=== PATIENT | female | born 1950 | race American Indian/Alaskan Native ===

== ENCOUNTER 2022-02-02 18:27 | Inpatient (IN) | payer MEDICARE ==
--- NOTE | 2022-02-02 18:39 | Emergency Department Report ---
ED Palpitations HPI - General Stated Complaint: AFIB Time Seen by Provider: 02/02/22 18:30 Source: patient, EMS - History of Present Illness Initial Comments: Patient is 71 years old female with no significant past medical history except for back surgery. Patient brought to the emergency room via EMS from home for evaluation of sudden onset of irregular and fast heartbeat. Patient stated that she never had any symptoms like this before. Patient stated that symptoms started during rest and associated with shortness of breath. EMS found patient to be in atrial fibrillation with RVR and heart rate of 170. Patient is comp laining of mild diffuse chest pain and shortness of breath. She denied any fever or chills or cough recently. MD Complaint: rapid heart beat, irregular heart beat, atrial fibrillation -: Sudden Context: occured during rest Associated Symptoms: chest pain, shortness of breath - Related Data Allergies Allergy/AdvReac Type Severity Reaction Status Date / Time No Known Allergies Allergy Verified 02/02/22 18:55 ED Review of Systems ROS: Stated complaint: AFIB Other details as noted in HPI Comment: All other systems reviewed and negative Constitutional: denies: chills, fever Respiratory: shortness of breath. denies: cough Cardiovascular: chest pain, palpitations, dyspnea on exertion Gastrointestinal: denies: abdominal pain, nausea, vomiting, diarrhea, constipation, hematemesis, hematochezia Musculoskeletal: denies: back pain Neurological: denies: headache, weakness, numbness, paresthesias, confusion ED Physical Exam - General General appearance: alert, in no apparent distress - Head Head exam: Present: atraumatic, normocephalic, normal inspection - Eye Eye exam: Present: normal appearance - ENT ENT exam: Present: normal exam, normal orophraynx, mucous membranes moist - Neck Neck exam: Present: normal inspection, full ROM. Absent: tenderness, meningismus - Respiratory Respiratory exam: Present: normal lung sounds bilaterally - Cardiovascular Cardiovascular Exam: Present: tachycardia, irregular rhythm. Absent: systolic murmur, diastolic murmur, rubs - GI/Abdominal GI/Abdominal exam: Present: soft, normal bowel sounds. Absent: distended, tenderness, guarding, rebound, rigid, organomegaly, mass, bruit, pulsatile mass, hernia - Extremities Exam Extremities exam: Present: normal inspection, full ROM, normal capillary refill. Absent: tenderness, pedal edema, joint swelling, calf tenderness - Back Exam Back exam: Present: normal inspection, full ROM. Absent: CVA tenderness (R), CVA tenderness (L) - Neurological Exam Neurological exam: Present: alert, oriented X3, CN II-XII intact, normal gait, reflexes normal. Absent: motor sensory deficit - Psychiatric Psychiatric exam: Present: normal mood - Skin Skin exam: Present: warm, intact, normal color ED Course Vital Signs 02/02/22 02/02/22 02/02/22 18:40 18:46 18:47 Temperature 97.9 F Pulse Rate 123 H 117 H Respiratory 17 14 Rate Blood Pressure [Right] O2 Sat by Pulse 99 99 Oximetry 02/02/22 18:52 Temperature Pulse Rate 134 H Respiratory 20 Rate Blood Pressure 133/102 [Right] O2 Sat by Pulse Oximetry ED Medical Decision Making - Lab Data Result diagrams: 02/02/22 18:45 02/02/22 18:45 - EKG Data -: EKG Interpreted by De Rate: tachycardia - EKG Data 02/02/22 19:44 Atrial fibrillation with RVR and a heart rate of 124. - Radiology Data Radiology results: report reviewed - Medical Decision Making Patient is 71 years old female with no significant past medical history except for back surgery. Patient brought to the emergency room via EMS from home for evaluation of sudden onset of irregular and fast heartbeat. Patient stated that she never had any symptoms like this before. Patient stated that symptoms started during rest and associated with shortness of breath. EMS found patient to be in atrial fibrillation with RVR and heart rate of 170. Patient is complaining of mild diffuse chest pain and shortness of breath. She denied any fever or chills or cough recently. Patient received Cardizem 10 mg IV bolus and started on Cardizem drip at 5 mg/h. Patient heart rate improved significantly. Labs reviewed and is unremarkable. Chest x-ray is negative for acute finding. I discussed the patient with Dr. Church, he agreed to admit the patient to medical service for further management. Critical Care Time: Yes Critical care time in (mins) excluding proc time.: 35 Critical care attestation.: If time is entered above; I have spent that time in minutes in the direct care of this critically ill patient, excluding procedure time. ED Disposition Clinical Impression: Atrial fibrillation with RVR Disposition: ADMITTED INPATIENT Is pt being admited?: Yes Condition: Stable
[2022-02-02] MEDS ORDERED: dilTIAZem 25 MG/5 ML INJ IV ONE (18:52)
--- NOTE | 2022-02-02 18:54 | XRay Report ---
CHEST 1 VIEW INDICATION / CLINICAL INFORMATION: Dyspnea. COMPARISON: None available. FINDINGS: SUPPORT DEVICES: None. HEART / MEDIASTINUM: No significant abnormality. LUNGS / PLEURA: No significant pulmonary or pleural abnormality. No pneumothorax. ADDITIONAL FINDINGS: No significant additional findings. IMPRESSION: 1. No acute findings. Signer Name: Patrick Davidson MD Signed: 02/02/2022 6:50 PM Workstation Name: [id number]
[2022-02-02] MEDS ORDERED: dilTIAZem/D5W 100 MG/100 ML BAG IV SCH (19:00)
[2022-02-02 19:25] LABS: Basophils % (Auto) 0.7 % (0.0-1.8); Eosinophils % (Auto) 0.7 % (0.0-4.3); Hematocrit 38.8 % (30.3-42.9); Hemoglobin 13.1 gm/dl (10.1-14.3); Lymphocytes # (Auto) 2.2 K/mm3 (1.2-5.4); Lymphocytes % (Auto) 35.9 % (13.4-35.0); Mean Corpuscular HGB Conc 34 % (30-34); Mean Corpuscular Volume 89 fl (79-97); Monocytes # (Auto) 0.3 K/mm3 (0.0-0.8); Platelet Count 290 K/mm3 (140-440); Red Blood Count 4.36 M/mm3 (3.65-5.03)
[2022-02-02 19:34] LABS: Partial Thromboplastin Time 28.6 Sec. (24.2-36.6)
[2022-02-02 19:35] LABS: Calcium 9.5 mg/dL (8.4-10.2)
[2022-02-02 19:41] LABS: Alanine Aminotransferase 18 units/L (7-56); Albumin 4.3 g/dL (3.9-5)
[2022-02-02 19:51] LABS: Free T4 (Free Thyroxine) 1.01 ng/dL (0.76-1.46)
[2022-02-02 19:58] LABS: Bilirubin,Direct < 0.2 mg/dL (0-0.2)
[2022-02-02 20:54] LABS: Bacteria,Urine 1+ /HPF (Negative); Bilirubin,Urine NEG (Negative); Blood,Urine NEG (Negative); Color,Urine Yellow (Yellow); Mucus,Urine FEW /HPF; Protein,Urine <15 mg/dL mg/dL (Negative); Urobilinogen,Urine < 2.0 mg/dL (<2.0)
[2022-02-02] MEDS ORDERED: ACETAMINOPHEN 325 MG TAB PO PRN (21:03)
[2022-02-02] MEDS ORDERED: MORPHINE 2 MG/1 ML INJ IV PRN (21:03)
[2022-02-02] MEDS ORDERED: ONDANSETRON 4 MG/2 ML INJ IV PRN (21:03)
[2022-02-02] MEDS ORDERED: oxyCODONE /ACETAMINOPHEN 5-325MG TAB PO PRN (21:03)
--- NOTE | 2022-02-02 21:03 | History and Physical Report ---
History of Present Illness Date of examination: 02/02/22 Date of admission: February 02, 2022 Chief complaint: Palpitations since a.m. History of present illness: 71-year-old -[place] female with no significant past medical history comes in for sudden onset of palpitations since a.m. Patient came by EMS. She never had similar episode before. Has a active lifestyle. Does not smoke. Runs and walks a lot every week about 14 miles. Not on any medications. Slight chest discomfort during the episode of palpitations. No nausea or diaphoresis or shortness of breath. No fever or chills. Patient had back surgery in the remote past. Past History Past Medical History: No medical history Past Surgical History: Other (Low back surgery) Social history: lives with family, full code. denies: smoking, alcohol abuse, prescription drug abuse Family history: hypertension Review of Systems ROS: Constitutional no weight loss or weight gain no fever or chills HEENT no sore throat no post nasal drip no diplopia Neck no neck stiffness no lymph gland enlargement Chest and lungs no shortness of breath cough or wheezing CVS palpitations and chest pain. GI no nausea no vomiting no diarrhea Genitourinary system no dysuria no flank pain Musculoskeletal system no muscle pains no joint pains [employer] no syncope no seizures Skin no rash no itching Psychiatric no depression no homicidal or suicidal tendencies Hematologic no lymphedema or bruising Endocrine no polydipsia no polyuria no cold intolerance no heat intolerance Medications and Allergies Allergies Allergy/AdvReac Type Severity Reaction Status Date / Time No Known Allergies Allergy Verified 02/02/22 18:55 Active Meds: Active Medications Diltiazem HCl (Cardizem/D5w 100mg/100ml) 100 mg in 100 mls @ 5 mls/hr IV TITR WANG; Protocol Last Admin: 02/02/22 20:00 Dose: 5 mg/hr, 5 mls/hr Exam - Constitutional Vitals: Temp Pulse Resp BP Pulse Ox 97.9 F 124 H 20 145/82 99 02/02/22 18:47 02/02/22 20:00 02/02/22 18:52 02/02/22 20:00 02/02/22 18:46 General appearance: Present: no acute distress, well-nourished - EENT Eyes: Present: PERRL ENT: hearing intact, clear oral mucosa - Neck Neck: Present: supple, normal ROM - Respiratory Respiratory effort: normal Respiratory: bilateral: CTA - Cardiovascular Heart rate: 130 Rhythm: irregularly irregular Heart Sounds: Present: S1 & S2. Absent: rub, click - Extremities Extremities: no ischemia, pulses intact, pulses symmetrical, No edema Peripheral Pulses: within normal limits - Abdominal General gastrointestinal: Present: soft, non-tender, non-distended, normal bowel sounds Female genitourinary: Present: normal - Rectal Rectal Exam: deferred - Integumentary Integumentary: Present: clear, warm, dry - Musculoskeletal Musculoskeletal: gait normal, strength equal bilaterally - Psychiatric Psychiatric: appropriate mood/affect, intact judgment & insight - Neurologic Neurologic: CNII-XII intact, moves all extremities - Allied Health Allied health notes reviewed: nursing, case management HEART Score - HEART Score History: Slightly suspicious Age: > 65 Risk factors: No known risk factors Troponin: Troponin T < 0.010 ng/mL (0.00-0.029) 02/02/22 18:45 Troponin: < normal limit - Critical Actions Critical Actions: 0-3 pts:0.9-1.7%risk of adverse cardiac event.Candidate for discharge Results - Labs CBC & Chem 7: 02/03/22 05:26 02/02/22 18:45 Labs: Laboratory Last Values WBC 6.2 K/mm3 (4.5-11.0) 02/02/22 18:45 RBC 4.36 M/mm3 (3.65-5.03) 02/02/22 18:45 Hgb 13.1 gm/dl (10.1-14.3) 02/02/22 18:45 Hct 38.8 % (30.3-42.9) 02/02/22 18:45 MCV 89 fl (79-97) 02/02/22 18:45 MCH 30 pg (28-32) 02/02/22 18:45 MCHC 34 % (30-34) 02/02/22 18:45 RDW 14.0 % (13.2-15.2) 02/02/22 18:45 Plt Count 290 K/mm3 (140-440) 02/02/22 18:45 Lymph % (Auto) 35.9 % (13.4-35.0) H 02/02/22 18:45 Story % (Auto) 5.0 % (0.0-7.3) 02/02/22 18:45 Eos % (Auto) 0.7 % (0.0-4.3) 02/02/22 18:45 Baso % (Auto) 0.7 % (0.0-1.8) 02/02/22 18:45 Lymph # (Auto) 2.2 K/mm3 (1.2-5.4) 02/02/22 18:45 Story # (Auto) 0.3 K/mm3 (0.0-0.8) 02/02/22 18:45 Eos # (Auto) 0.0 K/mm3 (0.0-0.4) 02/02/22 18:45 Baso # (Auto) 0.0 K/mm3 (0.0-0.1) 02/02/22 18:45 Seg Neutrophils % 57.7 % (40.0-70.0) 02/02/22 18:45 Seg Neutrophils # 3.6 K/mm3 (1.8-7.7) 02/02/22 18:45 PT 14.3 Sec. (12.2-14.9) 02/02/22 18:45 INR 1.00 (0.87-1.13) 02/02/22 18:45 APTT 28.6 Sec. (24.2-36.6) 02/02/22 18:45 Sodium 144 mmol/L (137-145) 02/02/22 18:45 Potassium 4.0 mmol/L (3.6-5.0) 02/02/22 18:45 Chloride 107.4 mmol/L (98-107) H 02/02/22 18:45 Carbon Dioxide 27 mmol/L (22-30) 02/02/22 18:45 Anion Gap 14 mmol/L 02/02/22 18:45 BUN 17 mg/dL (7-17) 02/02/22 18:45 Creatinine 1.1 mg/dL (0.6-1.2) 02/02/22 18:45 Estimated GFR 49 ml/min 02/02/22 18:45 BUN/Creatinine Ratio 15 % 02/02/22 18:45 Glucose 151 mg/dL (65-100) H 02/02/22 18:45 Calcium 9.5 mg/dL (8.4-10.2) 02/02/22 18:45 Magnesium 2.10 mg/dL (1.7-2.3) 02/02/22 18:45 Total Bilirubin 0.40 mg/dL (0.1-1.2) 02/02/22 18:45 Direct Bilirubin < 0.2 mg/dL (0-0.2) 02/02/22 18:45 Indirect Bilirubin 0.2 mg/dL 02/02/22 18:45 AST 17 units/L (5-40) 02/02/22 18:45 ALT 18 units/L (7-56) 02/02/22 18:45 Alkaline Phosphatase 57 units/L (35-129) 02/02/22 18:45 Troponin T < 0.010 ng/mL (0.00-0.029) 02/02/22 18:45 NT-Pro-B Natriuret Pep 35.13 pg/mL (0-900) 02/02/22 18:45 Total Protein 6.9 g/dL (6.3-8.2) 02/02/22 18:45 Albumin 4.3 g/dL (3.9-5) 02/02/22 18:45 Albumin/Globulin Ratio 1.7 % 02/02/22 18:45 TSH 1.480 mlU/mL (0.270-4.200) 02/02/22 18:45 Free T4 1.01 ng/dL (0.76-1.46) 02/02/22 18:45 Urine Bilirubin Neg (Negative) 02/02/22 20:09 Urine RBC (Auto) 1.0 /HPF (0.0-6.0) 02/02/22 20:09 U Epithel Cells (Auto) 7.0 /HPF (0-13.0) 02/02/22 20:09 Short CBC 02/02/22 Range/Units 18:45 WBC 6.2 (4.5-11.0) K/mm3 Hgb 13.1 (10.1-14.3) gm/dl Hct 38.8 (30.3-42.9) % Plt Count 290 (140-440) K/mm3 BMP 02/02/22 18:45 Sodium 144 Potassium 4.0 Chloride 107.4 H Carbon Dioxide 27 BUN 17 Creatinine 1.1 Glucose 151 H Calcium 9.5 Cardiac Enzymes 02/02/22 Range/Units 18:45 Troponin T < 0.010 (0.00-0.029) ng/mL Liver Function 02/02/22 Range/Units 18:45 Total Bilirubin 0.40 (0.1-1.2) mg/dL Direct Bilirubin < 0.2 (0-0.2) mg/dL AST 17 (5-40) units/L ALT 18 (7-56) units/L Alkaline Phosphatase 57 (35-129) units/L Albumin 4.3 (3.9-5) g/dL Short CBC 02/02/22 Range/Units 18:45 WBC 6.2 (4.5-11.0) K/mm3 Hgb 13.1 (10.1-14.3) gm/dl Hct 38.8 (30.3-42.9) % Plt Count 290 (140-440) K/mm3 BMP 02/02/22 18:45 Sodium 144 Potassium 4.0 Chloride 107.4 H Carbon Dioxide 27 BUN 17 Creatinine 1.1 Glucose 151 H Calcium 9.5 Cardiac Enzymes 02/02/22 02/02/22 Range/Units 18:45 22:21 Troponin T < 0.010 < 0.010 (0.00-0.029) ng/mL Liver Function 02/02/22 Range/Units 18:45 Total Bilirubin 0.40 (0.1-1.2) mg/dL Direct Bilirubin < 0.2 (0-0.2) mg/dL AST 17 (5-40) units/L ALT 18 (7-56) units/L Alkaline Phosphatase 57 (35-129) units/L Albumin 4.3 (3.9-5) g/dL Urine 02/02/22 Range/Units 20:09 Urine Color Yellow (Yellow) Urine pH 7.0 (5.0-7.0) Ur Specific [place] 1.012 (1.003-1.030) Urine Protein <15 mg/dl (Negative) mg/dL Urine Glucose (UA) Neg (Negative) mg/dL - Imaging and Cardiology EKG: report reviewed Chest x-ray: report reviewed (No acute findings) Assessment and Plan Advance Directives: Yes (Full code) VTE prophylaxis?: Chemical Plan of care discussed with patient/family: Yes - Patient Problems (1) Atrial fibrillation with RVR Current Visit: Yes Status: Acute Plan to address problem: Etiology unclear First episode Patient started on IV Cardizem and oral Cardizem IV Cardizem at 5 mg/h Oral Cardizem 30 mg every 6 hours Eliquis was also started Cardiology consult requested Echocardiogram requested for valve function, wall abnormalities and ejection fraction (2) Chest pain Current Visit: Yes Status: Acute Plan to address problem: Serial troponins No Lexiscan was requested Will defer to cardiology (3) DVT prophylaxis Current Visit: Yes Status: Acute Plan to address problem: On Eliquis and GI prophylaxis (4) Advance care planning Current Visit: Yes Status: Acute Plan to address problem: Disease education conducted, care plan discussed, diagnosis discussed, prognosis discussed. Patient is full code. Patient acknowledges understanding and agreement with care plan. +30 minutes.
[2022-02-02] MEDS ORDERED: SODIUM CHLORIDE 0.9% 1000 ML 1,000 ML ONE (21:04)
[2022-02-02 21:06] LABS: Amphetamine Screen,Urine PRESUMPTIVE NEGATIVE; Benzodiazepines Screen,Urine PRESUMPTIVE NEGATIVE; Cannabinoid Screen,Urine PRESUMPTIVE NEGATIVE; Cocaine Screen,Urine PRESUMPTIVE NEGATIVE; Methadone Screen,Urine PRESUMPTIVE NEGATIVE; Opiate Screen,Urine PRESUMPTIVE NEGATIVE
[2022-02-02] MEDS ORDERED: SODIUM CHLORIDE 0.9% 1000 ML 1,000 ML IV SCH (21:15)
[2022-02-02] MEDS: dilTIAZem 30 MG TAB PO SCH (22:08)
[2022-02-03] MEDS: dilTIAZem 30 MG TAB PO SCH (05:22)
[2022-02-03 06:16] LABS: Basophils # (Auto) 0.1 K/mm3 (0.0-0.1); Basophils % (Auto) 1.1 % (0.0-1.8); Eosinophils # (Auto) 0.1 K/mm3 (0.0-0.4); Eosinophils % (Auto) 1.7 % (0.0-4.3); Hematocrit 39.4 % (30.3-42.9); Hemoglobin 13.5 gm/dl (10.1-14.3); Lymphocytes # (Auto) 2.7 K/mm3 (1.2-5.4); Lymphocytes % (Auto) 49.8 % (13.4-35.0); Mean Corpuscular HGB Conc 34 % (30-34); Mean Corpuscular Volume 90 fl (79-97); Monocytes # (Auto) 0.3 K/mm3 (0.0-0.8); Monocytes % (Auto) 5.9 % (0.0-7.3); Platelet Count 281 K/mm3 (140-440)
[2022-02-03 06:43] LABS: Alanine Aminotransferase 20 units/L (7-56); Albumin 3.9 g/dL (3.9-5); BUN/Creatinine Ratio 15; Blood Urea Nitrogen 15 mg/dL (7-17); Calcium 8.8 mg/dL (8.4-10.2); Hemolysis Index 28
[2022-02-03 07:28] LABS: INR 0.97 (0.87-1.13); Partial Thromboplastin Time 29.8 Sec. (24.2-36.6)
[2022-02-03 08:36] VITALS: BP 126/63
[2022-02-03] MEDS ORDERED: APIXABAN 5 MG TAB PO SCH (10:00)
[2022-02-03] MEDS ORDERED: METOPROLOL TARTRATE 25 MG TAB PO ONE (13:59)
[2022-02-03] MEDS ORDERED: APIXABAN 5 MG TAB PO ONE (14:00)
--- NOTE | 2022-02-03 14:05 | Discharge Summary ---
Providers - Providers Date of Admission: 02/02/22 21:03 Date of discharge: 02/03/22 Attending physician: ANAND SALAZAR MD 02/02/22 21:06 Consult to Physician [CONS] Routine Comment: Consulting Provider: SAADIA NO Physician Instructions: Reason For Exam: A. fib with RVR Primary care physician: BRIDGET LOZA Hospitalization Reason for admission: Atrial fibrillation with RVR Condition: Stable Pertinent studies: Reviewed. Procedures: None. Hospital course: Patient 71-year-old female past medical history of hypertension who presented with acute onset of palpitations beginning the morning of ED presentation. Patient describes mixing cleaning chemicals together and developing acute palpitations that she is never experienced before. EMS was called, the patient was brought to the emergency room and found to be in A. fib with RVR with a heart rate of 170. The patient was started on a Cardizem drip with bolus. The patient showed clinical improvement, and she was transitioned to p.o. Cardizem. She was also initiated on Eliquis 5 mg every 12 hours. TTE was performed revealing EF 50-60% with normal LV size, normal LV function, normal LV wall thickness, normal LV segmental wall motion. Patient was counseled about the importance of adhering to recommended guidelines to reduce clot burden, the patient expresses understanding. Patient will be discharged on Eliquis 5 mg twice daily and metoprolol tartrate 50 mg twice daily. Patient is medically clear for discharge. Disposition: 01 HOME / SELF CARE / HOMELESS Final Discharge Diagnosis (Prints w/discharge instructions): Atrial fibrillation with RVR, hypertension. Time spent for discharge: 45 min Core Measure Documentation - Palliative Care Palliative Care/ Comfort Measures: Not Applicable - Core Measures Any of the following diagnoses?: none Exam - Constitutional Vitals: Temp Pulse Resp BP Pulse Ox 97.9 F 51 L 16 126/63 100 02/03/22 08:13 02/03/22 10:00 02/03/22 10:00 02/03/22 08:13 02/03/22 10:00 General appearance: Present: no acute distress, well-nourished - EENT Eyes: Present: PERRL, EOM intact ENT: hearing intact, clear oral mucosa, dentition normal - Neck Neck: Present: supple, normal ROM - Respiratory Respiratory effort: normal Respiratory: bilateral: CTA - Cardiovascular Rhythm: irregularly irregular Heart Sounds: Present: S1 & S2 - Extremities Extremities: no ischemia, pulses intact, pulses symmetrical, No edema, normal temperature, normal color, Full ROM Peripheral Pulses: within normal limits - Abdominal General gastrointestinal: Present: soft, non-tender, non-distended, normal bowel sounds Female genitourinary: Present: deferred - Rectal Rectal Exam: deferred - Integumentary Integumentary: Present: clear, warm, dry - Musculoskeletal Musculoskeletal: strength equal bilaterally - Psychiatric Psychiatric: appropriate mood/affect, intact judgment & insight, memory intact, cooperative - Neurologic Neurologic: CNII-XII intact, moves all extremities - Allied Health Allied health notes reviewed: nursing Plan Activity: no restrictions Diet: low salt Additional Instructions: Patient 71-year-old female past medical history of hypertension who presented with acute onset of palpitations beginning the morning of ED presentation. Patient describes mixing cleaning chemicals together and developing acute palpitations that she is never experienced before. EMS was called, the patient was brought to the emergency room and found to be in A. fib with RVR with a heart rate of 170. The patient was started on a Cardizem drip with bolus. The patient showed clinical improvement, and she was transitioned to p.o. Cardizem. She was also initiated on Eliquis 5 mg every 12 hours. TTE was performed revealing EF 50-60% with normal LV size, normal LV function, normal LV wall thickness, normal LV segmental wall motion. Patient was counseled about the importance of adhering to recommended guidelines to reduce clot burden, the patient expresses understanding. Patient will be discharged on Eliquis 5 mg twice daily and metoprolol tartrate 50 mg twice [place]. Patient is medically clear for discharge. Care Plan Goals: Patient is medically clear for discharge. Assessment: Patient 71-year-old female past medical history of hypertension who presented with acute onset of palpitations beginning the morning of ED presentation. Patient describes mixing cleaning chemicals together and developing acute palp itations that she is never experienced before. EMS was called, the patient was brought to the emergency room and found to be in A. fib with RVR with a heart rate of 170. The patient was started on a Cardizem drip with bolus. The patient showed clinical improvement, and she was transitioned to p.o. Cardizem. She was also initiated on Eliquis 5 mg every 12 hours. TTE was performed revealing EF 50-60% with normal LV size, normal LV function, normal LV wall thickness, normal LV segmental wall motion. Patient was counseled about the importance of adhering to recommended guidelines to reduce clot burden, the patient expresses understanding. Patient will be discharged on Eliquis 5 mg twice daily and metoprolol tartrate 50 mg twice daily. Patient is medically clear for discharge. Follow up with: BRIDGET LOZA JR, MD [Primary Care Provider] - 7 Days
--- NOTE | 2022-02-04 10:00 | Electrocardiograph Report ---
[facility] Test Date: 2022-02-02 Test Time: 18:37:16 Pat Name: PADMINI GALE Department: Room: A489 1 Gender: F Wrapper Counter: RIMA : 1950 Requested By: BETZAIDA ESQUIVEL Order Number: [id number] Reading MD: Dominic Braswell Measurements Intervals [place] Rate: 124 P: [place]: QRS: -2 QRSD: 92 T: 99 QT: 326 QTc: 469 Interpretive Statements Atrial fibrillation LVH with secondary repolarization abnormality No previous ECG available for comparison Electronically Signed On 02-04-2022 9:59:41 EDT by Dominic Braswell
== END 2022-02-03 14:15 | disposition home or self-care (01) | DRG 310 ==
LOC: ED 18:27 → 4A 21:03
PROVIDERS: ADMIT Internal Medicine; ATTEND Student in an Organized Health Care Education/Training Program
DX: I48.91 Unspecified atrial fibrillation (principal); Z82.49 Family history of ischemic heart disease and other diseases of the circulatory system
CPT/HCPCS: 36415; 71045; 80048; 80053; 80076; 80307; 81001; 82565; 83735; 83880; 84439; 84443; 84484; 85025; 85610; 85730; 93005; 93306; G0378; J3490; C8929; J7030